=== PATIENT | male | born 1995 | race Caucasian/White ===

== ENCOUNTER 2016-07-24 18:26 | Emergency (ER) | payer SELFPAY ==
[2016-07-24 19:17] LABS: HEMOGLOBIN 15.3 gm/dl (14.0-17.5); RED BLOOD COUNT 5.28 M/UL (4.20-5.50); WHITE BLOOD COUNT 6.2 K/UL (4.5-11.0)
[2016-07-24 19:33] LABS: BUN/CREATININE RATIO 17 (0-10)
== END 2016-07-24 23:40 | disposition home or self-care (01) ==
LOC: ER1 18:26
PROVIDERS: Student in an Organized Health Care Education/Training Program
DX: R10.816 Epigastric abdominal tenderness (principal); R10.811 Right upper quadrant abdominal tenderness; R11.2 Nausea with vomiting, unspecified; R19.7 Diarrhea, unspecified; Z88.2 Allergy status to sulfonamides
CPT/HCPCS: 36415; 80053; 81001; 82150; 83690; 85025; 96374; 99284; J2405; J7030

== ENCOUNTER 2021-06-12 19:48 | Emergency (ER) | payer OTHER ==
[~2021-06-12 19:48] MED LIST: PERCOCET 5/325 T1 EA PO
[2021-06-12 20:37] LABS: HEMOGLOBIN 14.2 gm/dl (14.0-17.5); RED BLOOD COUNT 4.97 M/UL (4.20-5.50); WHITE BLOOD COUNT 8.6 K/UL (4.5-11.0)
[2021-06-12 20:48] LABS: BUN/CREATININE RATIO 10 (0-10)
[2021-06-12] MEDS ORDERED: VOLTAREN EC 5050 MG PO (22:11)
== END 2021-06-12 22:20 | disposition home or self-care (01) ==
LOC: ER1 19:48
PROVIDERS: Emergency Medicine
DX: M25.572 Pain in left ankle and joints of left foot (principal); Z88.2 Allergy status to sulfonamides; F17.200 Nicotine dependence, unspecified, uncomplicated
CPT/HCPCS: 73610; 73630; 73701; 80053; 80307; 85025; 85379; 85652; 86140; 99284; Q9967